=== PATIENT | female | born 1970 | race Caucasian/White ===

== ENCOUNTER 2023-06-18 14:19 | Inpatient (IN) | payer MEDICAID, MEDICARE ==
[~2023-06-18] VITALS: Ht 175.3 cm; Wt 49.4 kg
[~2023-06-18 14:19] MED LIST: ASCO250T22 PO; CEFT1VIA14 IV; CHOL100046 PO; CYAN-104 PO; CYCL5TAB PO; DENO60DI SUBCUT; DICL20GE TOP; DOCU100C40 PO; DULA1.5P SQ; DULO60CA65 PO; EMPA10TA PO; FENT1PAT7 TOP; FERR-39 PO; FLUC100T25 PO; GABA300C PO; HYDR0.5S2 IV; LEVO500P12 IV; LEVO50TA8 PO; LIDO700A32 TOP; METF-436 PO; MULT-1085 PO; ONDA4TAB12 PO; OXYC-150 PO; POTA10CA85 PO; PRED15SO71 PO; SIME80TA16 PO; THIA50TA10 PO; [UNRECOGNIZED DRUG - CODE] IV
[2023-06-18] MEDS ORDERED: insulin regular, human 10 units/0.1 ml syringe IV ONE (15:20)
[2023-06-18] MEDS ORDERED: mag hydrox/Alum hydrox/simeth 30ml oral suspension PO PRN (16:30)
[2023-06-18] MEDS ORDERED: magnesium hydroxide 30ml (MOM) UD suspension PO PRN ×2 (16:30→18:05)
[2023-06-18] MEDS ORDERED: morphine 2 MG/ML inj. syringe IV PRN ×2 (16:30)
[2023-06-18] MEDS ORDERED: acetaminophen 325mg tablet PO PRN ×2 (16:30)
[2023-06-18] MEDS: normal saline 1000ml 1,000 ML IV SCH (17:04)
[2023-06-18] MEDS ORDERED: DRON2.5C18 PO (17:28)
[2023-06-18] MEDS ORDERED: POTA20TA34 PO (17:28)
[2023-06-18] MEDS ORDERED: AMIT25TA10 PO (17:28)
[2023-06-18] MEDS ORDERED: MAGN400O6 PO (17:28)
[2023-06-18] MEDS ORDERED: MEGE40TA5 PO (17:28)
[2023-06-18] MEDS ORDERED: HYDR-3686 PO (17:28)
[2023-06-18] MEDS ORDERED: FENT1PAT10 TP (17:28)
[2023-06-18] MEDS ORDERED: PROP20TA6 PO (17:28)
[2023-06-18] MEDS ORDERED: ASPI-1265 PO (17:28)
[2023-06-18] MEDS ORDERED: EMPA25TA PO (17:28)
[2023-06-18] MEDS ORDERED: METF-437 PO (17:28)
[2023-06-18] MEDS ORDERED: simethicone 80mg chew tab PO PRN (18:05)
[2023-06-18] MEDS ORDERED: fentaNYL 50MCG/HOUR patch.TD72 TD SCH (18:05)
[2023-06-18] MEDS ORDERED: [UNRECOGNIZED DRUG - REMARK] MC ONE (18:30)
[2023-06-18 19:29] LABS: ALBUMIN 2.8 G/DL (3.4-5.0); ANION GAP 16 (8-16); BLOOD UREA NITROGEN 78 MG/DL (7-18); BUN/CREATININE RATIO 13.1 (10.0-20.0); CALCIUM 10.2 MG/DL (8.5-10.1); CHLORIDE 85 MMOL/L (99-107); CREATININE 5.95 MG/DL (0.40-0.90); GLUCOSE 65 MG/DL (70-104); POTASSIUM 4.6 MMOL/L (3.5-5.1); SODIUM 121 MMOL/L (135-145); TOTAL CARBON DIOXIDE 20.3 MMOL/L (24-32); eCRCL 9 ML/MIN; eGFR 7 ML/MIN
[2023-06-18] MEDS: docusate sod 100mg capsule PO SCH (20:00)
[2023-06-18] MEDS: heparin, porcine 5000 units/ml vial SQ SCH (20:00)
--- NOTE | 2023-06-18 21:04 | NUR ---
1855 PT REQUESTING DINNER TRAY, DENIES N/V. TRAY PROVIDED AFTER DIET ORDER CONFIRMED
[2023-06-18] MEDS: propranolol 10mg tablet PO SCH (21:40)
[2023-06-18] MEDS: thiamine 100mg tablet PO SCH (21:40)
[2023-06-18] MEDS: dronabinol 2.5mg capsule PO SCH (22:06)
[2023-06-18] MEDS: amitriptyline 25mg tablet PO SCH (22:07)
[2023-06-18] MEDS: fentaNYL 50MCG/HOUR patch.TD72 TD SCH (22:10)
--- NOTE | 2023-06-18 22:11 | NUR ---
2150 FENTANYL PATCH TO RIGHT CW REMOVED AND DISPOSED OF PROPERLY, WITH 2 RN SIGNATURES, FENTANYL CADD AKNOWLEDGED, NON-ADMIN R/T PT HAS NO PUMP IN PLACE 2210 NEW FENTANYL PATCH PLACED LEFT CHEST WALL
--- NOTE | 2023-06-18 22:23 | NUR ---
2225 STAYED WITH PT TO REPOSITION FOR COMFORT, TURNED TO RIGHT SIDE, WARM BLANKETS, PILLOW POSITIONED, LIGHTS DIMMED, RESTING NOW IN NAD
--- NOTE | 2023-06-19 01:42 | NUR ---
PT TRANSFERRED TO HOSP BED FOR COMFORT, PEND ROOM ASSIGNMENT, RETURNED TO ALL MONITORS, NS INFUSING, RESTING IN NAD. NO C/C AT THIS TIME
--- NOTE | 2023-06-19 06:53 | NUR ---
Patient in room ED 1. I have received report from ER nurse Stacy JOSÉ and had the opportunity to ask questions and assume patient care.
--- NOTE | 2023-06-19 07:10 | NUR ---
Patient arrived to unit via hospital bed. Colostomy leaked all over bedding. Bedding changed. Complaining of minor pain in low back.
[2023-06-19 07:15] VITALS: BP 114/29; PULSE 86; RESP 16; TEMP 98.4; O2SAT 97
[2023-06-19] MEDS: docusate sod 100mg capsule PO SCH ×2 (08:00→19:49)
[2023-06-19] MEDS ORDERED: EMPAGLIFLOZIN 25 MG TABLET PO SCH (08:00)
[2023-06-19] MEDS: normal saline 1000ml 1,000 ML IV SCH ×3 (08:12→22:30)
[2023-06-19] MEDS: heparin, porcine 5000 units/ml vial SQ SCH ×2 (08:13→19:47)
[2023-06-19] MEDS: propranolol 10mg tablet PO SCH ×3 (08:14→19:47)
[2023-06-19] MEDS: levoTHYROXINE 25mcg tablet PO SCH (08:14)
[2023-06-19] MEDS: thiamine 100mg tablet PO SCH ×3 (08:14→19:46)
[2023-06-19] MEDS: ferrous sulfate 325mg tablet PO SCH (08:14)
[2023-06-19] MEDS: multivitamins, therapeutics tablet PO SCH (08:14)
[2023-06-19] MEDS: cyanocobalamin 500mcg tablet PO SCH (08:14)
[2023-06-19 08:52] LABS: BASOPHILS % (AUTO) 0.4 % (0-1); EOSINOPHILS # (AUTO) 0.2 X10'3 (0-0.9); EOSINOPHILS % (AUTO) 3.6 % (0-6); HEMATOCRIT 29.7 % (35.0-45.0); HEMOGLOBIN 10.2 g/dl (12.0-16.0); LYMPHOCYTES # (AUTO) 2.2 X10'3 (1.1-4.8); LYMPHOCYTES % (AUTO) 33.9 % (21-51); MEAN CORPUSCULAR HEMOGLOBIN 27.9 PG (27.0-31.0); MEAN CORPUSCULAR HGB CONC 34.2 g/dL (33.0-36.5); MEAN CORPUSCULAR VOLUME 81.4 FL (78-98); MEAN PLATELET VOLUME 8.1 FL (7.4-10.4); MONOCYTES # (AUTO) 0.7 X10'3 (0-0.9); MONOCYTES % (AUTO) 10.4 % (2-12); NEUTROPHILS # (AUTO) 3.4 X10'3 (1.8-7.7); NEUTROPHILS % (AUTO) 51.7 % (42-75); PLATELET COUNT 163 X10'3 (140-440); RED BLOOD COUNT 3.64 X10'6 (4.20-5.60); RED CELL DISTRIBUTION WIDTH 15.6 % (11.5-14.5); WHITE BLOOD COUNT 6.6 X10'3 (4.5-11.0)
[2023-06-19 09:14] LABS: ALBUMIN 2.6 G/DL (3.4-5.0); ANION GAP 13 (8-16); BLOOD UREA NITROGEN 84 MG/DL (7-18); BUN/CREATININE RATIO 12.4 (10.0-20.0); CALCIUM 9.8 MG/DL (8.5-10.1); CHLORIDE 88 MMOL/L (99-107); CREATININE 6.77 MG/DL (0.40-0.90); GLUCOSE 85 MG/DL (70-104); POTASSIUM 4.3 MMOL/L (3.5-5.1); SODIUM 122 MMOL/L (135-145); TOTAL CARBON DIOXIDE 21.4 MMOL/L (24-32); eCRCL 8 ML/MIN; eGFR 6 ML/MIN
[2023-06-19] MEDS: ascorbic acid 500mg tablet PO SCH (09:30)
[2023-06-19] MEDS: HYDROcodone/acetaminophen 5mg/325mg tablet PO PRN (09:36)
[2023-06-19] MEDS: Potassium Cl inj 20 MEQ in normal saline 1000ml 990 ML IV SCH ×2 (09:39→17:57)
[2023-06-19] MEDS: dronabinol 2.5mg capsule PO SCH ×2 (09:51→20:38)
[2023-06-19] MEDS: megestrol acetate 20mg tablet PO SCH (09:52)
[2023-06-19 11:00] VITALS: BP 98/36; PULSE 71; RESP 19; TEMP 98.6; O2SAT 95
--- NOTE | 2023-06-19 11:27 | NUR ---
Low BMI Screen: Pt admit DX acute renal failure secondary to dehydration, hyponatremia, hypothyroidism, and hx colon CA w/ hemicolectomy and Ileostomy 03/17/23 per EMR. Pt BMI 16.3 using 50kg bed scaled wt this admit; true height 68" making true BMI 16.8. Pt hx 125 pounds 03/15/[address] and reported 60 pounds (~32% UBW) the past year w/ chronic diarrhea met severe malnutrition criteria and was provided w/ RD contact information and Ensure ONS coupons. Pt now 113 pounds further 12 pounds loss on top of already severely malnourished state ~39% UBW loss 15 months; MD notified of severe malnutrition status. Pt seen by RD at bedside; pt reports still has Ensure coupons but receives Glucerna at or between meals at living facility in attempts to gain weight. RD verbally educated pt on nutrition repletion and appropriate ONS supplementation for weight gain/Ileostomy. Pt unable to confirm if changes in Ileostomy output prior to admit; is agreeable to Ensure Enlive TIDWM- MD notified. Fortunately, pt receiving routine MVI, thiamine, vitamin C, and Fe. PO pending on initial renal diet though pt receiving IV NS, IV KCL/NS, and low Na this LOS. RD paged MD regarding change to regular/low-residue diet given malnutrition and electrolyte/Ileostomy status- new regular/low-residue diet now in EMR. Ileostomy -125ml last night pending output documentation this admit. Will monitor for PO tolerance/acceptance and further nutrition intervention needs this admit. Rec: 1. continue low-residue diet; further diet restrictions not appropriate given worsening malnutrition status 2. Ensure Enlive TIDWM; pending physician verification in EMR 3. routine MVI, Fe, vitamin C, thiamine per MD for nutrition repletion 4. routine appetite stimulant per MD 5. cancel cathartics given Ileostomy status if MD agreeable 6. monitor Ileostomy output 7. daily scaled wt Addendum: 06/19/23 at [address] Amended: Links added.
[2023-06-19] MEDS: duloxetine 30mg CAPSULE.DR PO SCH (12:50)
[2023-06-19] MEDS: lactose-reduced food (Ensure Enlive) - 237ml bottle PO SCH (13:00)
[2023-06-19] MEDS ORDERED: diatrozoate meglu/diatrozoate sod (37% iodine) 120ML oral solution PO ONE (14:15)
[2023-06-19 15:00] VITALS: BP 106/30; PULSE 79; RESP 17; TEMP 98.1; O2SAT 95
--- NOTE | 2023-06-19 16:27 | NUR ---
PRESSURE ULCER EDUCATION: DEFINITION: A pressure ulcer is an area of skin that breaks down when you stay in one position too long. The constant pressure against the skin reduces the blood flow to that area and the affected tissue dies. CAUSES: "Being bedridden or in a wheelchair "Fragile skin "Having a chronic condition, such as diabetes or vascular disease "Inability to move certain parts of your body without assistance "Older age "Incontinence of urine or stool SYMPTOMS: "A reddened area that DOES NOT turn white when pressed on - this can be the beginning of a pressure ulcer "A blister, deep sore or a crater - these can be advanced pressure ulcers FIRST AID: "Relieve the pressure on this area "Keep the area clean and dry "Call your primary doctor if you see any of the above symptoms "DO NOT massage the area "DO NOT use a donut shaped or ring shaped pillow- these actually interfere with the blood flow and cause complications PREVENTION: "Check for pressure ulcers everyday "Change position at least every two hours to relieve pressure "Use items that help relieve pressure- pillows, sheepskin, foam padding, and powders. "Keep skin clean and dry "Eat healthy well balanced meals "Exercise daily IF YOU SEE ANY OF THESE SYMPTOMS WHILE IN THE HOSPITAL - TELL YOUR NURSE IMMEDIATELY. IF YOU SEE ANY OF THESE SYMPTOMS WHILE AT HOME OR HAVE ANY QUESTIONS OR CONCERNS ABOUT PRESSURE ULCERS - CALL YOUR PRIMARY DOCTOR IMMEDIATELY. Addendum: 06/19/23 at 1628 by Emili Esparza LVN Amended: Links added.
[2023-06-19 18:00] VITALS: BP 110/42; PULSE 78; RESP 21; TEMP 97.9; O2SAT 94
--- NOTE | 2023-06-19 18:18 | NUR ---
Problems reprioritized. Patient report given, questions answered & plan of care reviewed with Edson JOHNSON.
[2023-06-19] MEDS: amitriptyline 25mg tablet PO SCH (19:46)
[2023-06-19 20:00] VITALS: RESP 21; O2SAT 94
--- NOTE | 2023-06-19 22:20 | NUR ---
pt was given dose of gastrografin 30ml, ct and charge aware
[2023-06-20] VITALS (8 sets, daily range): BP systolic 98–122; BP diastolic 32–54; PULSE 72–80; RESP 15–18; TEMP 97–98.6; O2SAT 92–98
[2023-06-20] MEDS: Potassium Cl inj 20 MEQ in normal saline 1000ml 990 ML IV SCH ×4 (00:50→16:50)
--- NOTE | 2023-06-20 06:30 | NUR ---
Patient in room PCU 3014. I have received report from Edson JOHNSON and had the opportunity to ask questions and assume patient care.
[2023-06-20 07:23] LABS: BASOPHILS % (AUTO) 0.4 % (0-1); EOSINOPHILS # (AUTO) 0.1 X10'3 (0-0.9); EOSINOPHILS % (AUTO) 2.4 % (0-6); HEMATOCRIT 29.7 % (35.0-45.0); LYMPHOCYTES # (AUTO) 1.5 X10'3 (1.1-4.8); LYMPHOCYTES % (AUTO) 34.2 % (21-51); MEAN CORPUSCULAR HEMOGLOBIN 27.4 PG (27.0-31.0); MEAN CORPUSCULAR HGB CONC 33.5 g/dL (33.0-36.5); MEAN CORPUSCULAR VOLUME 81.7 FL (78-98); MEAN PLATELET VOLUME 7.8 FL (7.4-10.4); MONOCYTES # (AUTO) 0.5 X10'3 (0-0.9); MONOCYTES % (AUTO) 11.3 % (2-12); NEUTROPHILS # (AUTO) 2.2 X10'3 (1.8-7.7); NEUTROPHILS % (AUTO) 51.7 % (42-75); PLATELET COUNT 150 X10'3 (140-440); RED BLOOD COUNT 3.64 X10'6 (4.20-5.60); RED CELL DISTRIBUTION WIDTH 15.4 % (11.5-14.5); WHITE BLOOD COUNT 4.3 X10'3 (4.5-11.0)
[2023-06-20 07:36] LABS: ALBUMIN 2.4 G/DL (3.4-5.0); ANION GAP 12 (8-16); BLOOD UREA NITROGEN 78 MG/DL (7-18); BUN/CREATININE RATIO 11.9 (10.0-20.0); CALCIUM 9.3 MG/DL (8.5-10.1); CHLORIDE 96 MMOL/L (99-107); CREATININE 6.53 MG/DL (0.40-0.90); GLUCOSE 121 MG/DL (70-104); POTASSIUM 4.8 MMOL/L (3.5-5.1); SODIUM 128 MMOL/L (135-145); TOTAL CARBON DIOXIDE 20.2 MMOL/L (24-32); eCRCL 8 ML/MIN; eGFR 7 ML/MIN
[2023-06-20] MEDS: docusate sod 100mg capsule PO SCH ×2 (08:00→20:37)
--- NOTE | 2023-06-20 08:28 | NUR ---
Spoke with Dr Awan about patient not voiding and Fluid orders. Dr Awan gave orders to place and [place] cath, and DC NS running @ 100 mL/hr.
[2023-06-20] MEDS: ascorbic acid 500mg tablet PO SCH (09:22)
[2023-06-20] MEDS: HYDROcodone/acetaminophen 5mg/325mg tablet PO PRN ×2 (09:22→16:59)
[2023-06-20] MEDS: multivitamins, therapeutics tablet PO SCH (09:22)
[2023-06-20] MEDS: cyanocobalamin 500mcg tablet PO SCH (09:23)
[2023-06-20] MEDS: megestrol acetate 20mg tablet PO SCH (09:23)
[2023-06-20] MEDS: levoTHYROXINE 25mcg tablet PO SCH (09:23)
[2023-06-20] MEDS: thiamine 100mg tablet PO SCH ×3 (09:23→20:38)
[2023-06-20] MEDS: ferrous sulfate 325mg tablet PO SCH (09:23)
[2023-06-20] MEDS: propranolol 10mg tablet PO SCH ×3 (09:23→20:37)
[2023-06-20] MEDS: duloxetine 30mg CAPSULE.DR PO SCH (09:23)
[2023-06-20] MEDS: heparin, porcine 5000 units/ml vial SQ SCH ×2 (09:24→20:37)
--- NOTE | 2023-06-20 11:35 | NUR ---
Patient's sister called and is asking about patient's diagnosis and prognosis. Asked patient if we can give sister health information. Patient gave permission. Spoke with patient's sister about patient's care and health problems. Sister is reassured with information. Patient is confused on what is going and believes she is dieing. Nursing is doing our best to reassure patient that we are giving her fluids to help her kidneys.
[2023-06-20] MEDS: dronabinol 2.5mg capsule PO SCH (11:43)
[2023-06-20 12:12] LABS: BILIRUBIN,URINE NEGATIVE (Neg); CLARITY,URINE CLOUDY (Clear); COLOR,URINE YELLOW (Yellow); GLUCOSE, URINE 100 mg/dl (Neg); KETONES,URINE NEGATIVE (Neg); LEUKOCYTE ESTERASE ,URINE SMALL (Neg); NITRITES, URINE NEGATIVE (Neg); OCCULT BLOOD,URINE MODERATE (Neg); PH,URINE 5.5 (4.8-8.0); PROTEIN,URINE 100 mg/dl (Neg); UROBILINOGEN,URINE 0.2 E.U/dL (0.2-1.0)
[2023-06-20 12:18] LABS: SQUAMOUS EPITHELIAL CELL,UR MODERATE /LPF (FEW); UA COLLECTION TYPE FOLEY CATH
[2023-06-20 12:20] LABS: BACTERIA,URINE FEW /HPF (Neg); WBC,URINE TNTC /HPF (0-4); YEAST MANY /HPF (NEGATIVE)
[2023-06-20 12:21] LABS: TRANSITIONAL EPI CELLS,URINE FEW /HPF
[2023-06-20 12:24] LABS: TOTAL PROTEIN,URINE RANDOM 115.5 MG/DL
--- NOTE | 2023-06-20 18:17 | NUR ---
Problems reprioritized. Patient report given, questions answered & plan of care reviewed with Landen JOHNSON.
[2023-06-20] MEDS: amitriptyline 25mg tablet PO SCH (20:38)
[2023-06-20] MEDS: potassium Cl 20mEq in NS 1,000 ML IV SCH (21:55)
[2023-06-21] VITALS (8 sets, daily range): BP systolic 108–119; BP diastolic 38–49; PULSE 74–81; RESP 14–18; TEMP 97.3–98.3; O2SAT 93–98
--- NOTE | 2023-06-21 04:10 | NUR ---
CLIENT ACCOUNT REPRESENTATIVE documentation: I have reviewed and agree with all interventions, assessments performed and documented by FRANCES JOHNSON.
[2023-06-21] MEDS: potassium Cl 20mEq in NS 1,000 ML IV SCH ×3 (05:40→22:59)
[2023-06-21] MEDS: dronabinol 2.5mg capsule PO SCH ×2 (08:00→21:38)
[2023-06-21] MEDS: ferrous sulfate 325mg tablet PO SCH (08:04)
[2023-06-21] MEDS: duloxetine 30mg CAPSULE.DR PO SCH (08:04)
[2023-06-21] MEDS: docusate sod 100mg capsule PO SCH ×2 (08:04→20:00)
[2023-06-21] MEDS: multivitamins, therapeutics tablet PO SCH (08:04)
[2023-06-21] MEDS: cyanocobalamin 500mcg tablet PO SCH (08:05)
[2023-06-21] MEDS: thiamine 100mg tablet PO SCH ×3 (08:05→20:49)
[2023-06-21] MEDS: propranolol 10mg tablet PO SCH ×3 (08:05→20:49)
[2023-06-21] MEDS: levoTHYROXINE 25mcg tablet PO SCH (08:05)
[2023-06-21] MEDS: ascorbic acid 500mg tablet PO SCH (08:05)
[2023-06-21] MEDS: heparin, porcine 5000 units/ml vial SQ SCH ×2 (08:06→20:50)
[2023-06-21] MEDS: megestrol acetate 20mg tablet PO SCH (08:28)
[2023-06-21 09:17] LABS: BASOPHILS % (AUTO) 0.7 % (0-1); EOSINOPHILS # (AUTO) 0.1 X10'3 (0-0.9); EOSINOPHILS % (AUTO) 2.4 % (0-6); HEMATOCRIT 28.7 % (35.0-45.0); HEMOGLOBIN 9.7 g/dl (12.0-16.0); LYMPHOCYTES # (AUTO) 1.5 X10'3 (1.1-4.8); LYMPHOCYTES % (AUTO) 33.4 % (21-51); MEAN CORPUSCULAR HEMOGLOBIN 27.7 PG (27.0-31.0); MEAN CORPUSCULAR HGB CONC 33.7 g/dL (33.0-36.5); MEAN CORPUSCULAR VOLUME 82.1 FL (78-98); MEAN PLATELET VOLUME 8.1 FL (7.4-10.4); MONOCYTES # (AUTO) 0.4 X10'3 (0-0.9); MONOCYTES % (AUTO) 9.2 % (2-12); NEUTROPHILS # (AUTO) 2.5 X10'3 (1.8-7.7); NEUTROPHILS % (AUTO) 54.3 % (42-75); PLATELET COUNT 154 X10'3 (140-440); RED CELL DISTRIBUTION WIDTH 16.1 % (11.5-14.5); WHITE BLOOD COUNT 4.6 X10'3 (4.5-11.0)
[2023-06-21 09:42] LABS: ALBUMIN 2.2 G/DL (3.4-5.0); ANION GAP 11 (8-16); BLOOD UREA NITROGEN 69 MG/DL (7-18); BUN/CREATININE RATIO 11.7 (10.0-20.0); CHLORIDE 103 MMOL/L (99-107); GLUCOSE 99 MG/DL (70-104); POTASSIUM 4.8 MMOL/L (3.5-5.1); SODIUM 133 MMOL/L (135-145); THYROID STIMULATING HORMONE 0.58 ulU/ml (0.34-4.50); TOTAL CARBON DIOXIDE 18.6 MMOL/L (24-32); eCRCL 9 ML/MIN; eGFR 7 ML/MIN
[2023-06-21] MEDS: hydrOXYzine 25 MG tablet PO PRN (11:21)
[2023-06-21] MEDS: HYDROcodone/acetaminophen 5mg/325mg tablet PO PRN ×2 (11:22→21:15)
[2023-06-21] MEDS: lactose-reduced food (Ensure Enlive) - 237ml bottle PO SCH (13:00)
[2023-06-21] MEDS: amitriptyline 25mg tablet PO SCH (20:49)
[2023-06-21] MEDS: fentaNYL 50MCG/HOUR patch.TD72 TD SCH (21:39)
[2023-06-22] VITALS (7 sets, daily range): BP systolic 111–138; BP diastolic 33–56; PULSE 73–76; RESP 12–18; TEMP 97.2–98.5; O2SAT 95–96
[2023-06-22] MEDS: potassium Cl 20mEq in NS 1,000 ML IV SCH ×2 (04:30→12:44)
[2023-06-22] MEDS: levoTHYROXINE 25mcg tablet PO SCH (07:00)
[2023-06-22] MEDS: docusate sod 100mg capsule PO SCH ×2 (08:00→20:08)
[2023-06-22] MEDS: propranolol 10mg tablet PO SCH ×3 (08:00→20:08)
[2023-06-22] MEDS: heparin, porcine 5000 units/ml vial SQ SCH ×2 (08:00→20:10)
[2023-06-22 08:47] LABS: BASOPHILS % (AUTO) 0.7 % (0-1); EOSINOPHILS # (AUTO) 0.2 X10'3 (0-0.9); EOSINOPHILS % (AUTO) 3.4 % (0-6); HEMATOCRIT 29.7 % (35.0-45.0); HEMOGLOBIN 9.8 g/dl (12.0-16.0); LYMPHOCYTES # (AUTO) 1.8 X10'3 (1.1-4.8); LYMPHOCYTES % (AUTO) 35.6 % (21-51); MEAN CORPUSCULAR HEMOGLOBIN 27.6 PG (27.0-31.0); MEAN CORPUSCULAR HGB CONC 33.1 g/dL (33.0-36.5); MEAN CORPUSCULAR VOLUME 83.2 FL (78-98); MEAN PLATELET VOLUME 7.3 FL (7.4-10.4); MONOCYTES # (AUTO) 0.4 X10'3 (0-0.9); MONOCYTES % (AUTO) 8.7 % (2-12); NEUTROPHILS # (AUTO) 2.7 X10'3 (1.8-7.7); NEUTROPHILS % (AUTO) 51.6 % (42-75); PLATELET COUNT 176 X10'3 (140-440); RED BLOOD COUNT 3.57 X10'6 (4.20-5.60); RED CELL DISTRIBUTION WIDTH 16.5 % (11.5-14.5); WHITE BLOOD COUNT 5.2 X10'3 (4.5-11.0)
[2023-06-22 09:01] LABS: ALBUMIN 2.2 G/DL (3.4-5.0); ANION GAP 10 (8-16); BLOOD UREA NITROGEN 54 MG/DL (7-18); BUN/CREATININE RATIO 11.8 (10.0-20.0); CALCIUM 9.1 MG/DL (8.5-10.1); CHLORIDE 108 MMOL/L (99-107); CREATININE 4.56 MG/DL (0.40-0.90); GLUCOSE 117 MG/DL (70-104); POTASSIUM 5.1 MMOL/L (3.5-5.1); SODIUM 136 MMOL/L (135-145); TOTAL CARBON DIOXIDE 17.6 MMOL/L (24-32); eCRCL 11 ML/MIN; eGFR 10 ML/MIN
[2023-06-22] MEDS: megestrol acetate 20mg tablet PO SCH (09:23)
[2023-06-22] MEDS: cyanocobalamin 500mcg tablet PO SCH (09:23)
[2023-06-22] MEDS: duloxetine 30mg CAPSULE.DR PO SCH (09:24)
[2023-06-22] MEDS: ferrous sulfate 325mg tablet PO SCH (09:24)
[2023-06-22] MEDS: ascorbic acid 500mg tablet PO SCH (09:24)
[2023-06-22] MEDS: hydrOXYzine 25 MG tablet PO PRN ×2 (09:57→17:37)
[2023-06-22] MEDS: thiamine 100mg tablet PO SCH ×3 (09:57→20:08)
[2023-06-22] MEDS: multivitamins, therapeutics tablet PO SCH (09:57)
[2023-06-22] MEDS: dronabinol 2.5mg capsule PO SCH (12:13)
--- NOTE | 2023-06-22 12:34 | NUR ---
OSTOMY FACTS: Almost everyone has know of, or met, businessmen, entertainers, athletes, and people from all walks of life who have an ostomy. Ostomates (a person that has an ostomy) can ski, ride horses, bowl, and get healthy exercise in countless ways. Your usual activities of daily living can be resumed as soon as you are able. Gradually you will be able to wear the clothes worn before surgery. With modern pouches, nothing is noticeable under your clothing. It may be difficult at first to believe that an intimate relationship can be possible when one's body has been disfigured by surgery. This is not true. Love, fortunately, is not easily destroyed when it is based on genuine appreciation of a person as a thinking, feeling, reacting human being. AN OSTOMY IS NOT AN IMPAIRMENT!! DEFINITIONS: 1.OSTOMY: An opening that is created by a surgical procedure. The opening is called a "stoma". 2.STOMA: A surgical opening in the abdomen (belly) where intestine is brought through the abdominal wall and connected at the skin level. A stoma is shiny, wet and at first is dark purple but eventually turns pink, similar to the inside lining of your mouth. 3.COLON: A portion of the large bowel. 4.COLOSTOMY: A fecal diversion with an opening, (stoma) created anywhere along the colon. Making a connection between the colon and the abdominal wall. 5.ILLEOSTOMY: A fecal diversion with an opening, (stoma) created in the small intestine. Making a connection between the small intestine and the abdominal wall. 6.UROSTOMY: A urinary diversion with the ureters connected to a segment of the small bowel and one end is brought out and connected to the abdominal wall, creating a stoma. SHAPES and SIZES: "The stoma is usually round or oval. "It is anywhere from a dime to half dollar in size. "A stoma reaches its permanent size 6-8 weeks after surgery. PRODUCTS: 1.POUCH or APPLIANCE: An external device to contain stool or urine output and protect the skin around the stoma. It can be a one piece pouch or two pieces (a pouch and a wafer). 2.BARRIER: Substance that is used to protect the skin around the stoma from drainage and adhesive. 3.SKIN PREP or SEALANT: Product applied to the skin to reduce injury from moisture, drainage, or repeated pouch removal. Available in spray or wipes. 4.CLOSURE or CLAMP: A device used to close the bottom of a drainable pouch. 5.BRIDGE or ANDRÉS: A piece of plastic placed under a loop of bowel on the skins surface, to secure the bowel in place while the skin heals. POUCH CHANGE PROCEEDURE: 1.Assemble all the supplies "1 or 2 piece appliance "Ostomy paste (if needed) "Ostomy powder (if needed) "Skin prep wipes ( not recommended with coloplast products) "Moist wash cloth or cotton balls 2.Remove plastic center and paper backing from pouch. If pouch or wafer is not precut, use the sizing guide, or plastic backing from pouch to make a pattern. Do this by placing the paper over the stoma and trace it, or draw a pattern. Cut the wafer to fit and set it aside. 3.Remove old pouch by lifting up on tape while pressing skin down away from the tape. If there is a clip on your pouch, remove it and save it. 4.Clean skin or stoma with moistened wash cloth or cotton balls. Place a clean cotton ball over stoma hole to catch any drainage. Let skin dry. 5.For grooves or uneven areas in the skin- apply ostomy paste and sprinkle with ostomy powder, then gently shape the past so the area around the stoma is smooth and as flat as possible. Wipe off or blow away excess. Blot powder with skin prep wipe (DO NOT wipe powder). Let dry until no longer sticky. 6.For irritated or reddened skin- sprinkle ostomy powder on red or irritated area. Wipe off or blow away excess. Blot powder with skin prep wipe (DO NOT wipe powder). Let dry until no longer sticky. 7.Apply skin prep wipe to skin to which the pouch and tape will adhere. Let dry until no longer sticky. 8.If you have a one piece appliance- apply pouch so it is centered around the stoma. No skin should be exposed to stool. All skin should be covered by paste or pouch. 9.If you have a two piece appliance- Apply the wafer as described above, then snap or stick pouch onto wafer. Check to make sure wafer and pouch are securely connected. 10.Place clip on bottom of pouch. 11.Empty pouch when 1/3 full. OSTOMY SKIN CARE: "Good health care and nutrition are essential for healthy skin. "Usually a correct pouch size will prevent skin breakdown. "Use warm water and soap for skin cleansing. "Do not use creams or oil based products on skin around the stoma. This will prevent the appliance from sticking. "Use skin prep around the stoma. IT CAN TAKE 24 HOURS TO SEVERAL DAYS FOR SKIN TO HEAL. IF IT IS NOT RESOLVING, OR GETTING WORSE, CALL YOUR PRIMARY CARE DOCTOR. Addendum: 06/22/23 at 1236 by Emili Esparza LVN Amended: Links added.
[2023-06-22] MEDS: lactose-reduced food (Ensure Enlive) - 237ml bottle PO SCH ×2 (13:00→20:14)
--- NOTE | 2023-06-22 13:31 | NUR ---
Reassessment: Pt continues on low fiber diet with average 50% PO intake of meals since 03/20 meeting 61% estimated energy needs and 59% estimated protein needs. Physician has approved ONS in EMR, pt to begin Ensure Enlive TID. LBM 06/22 per EMR though no documentation of quantity of stool output. Per I&O pt with 1250 mL stool output 06/21. Will continue to follow closely and monitor need for further nutrition intervention pending ONS acceptance. Recommendations: 1. Continue low fiber diet; further diet restrictions not appropriate given worsening malnutrition status 2. Ensure Enlive TIDWM 3. Routine MVI, Fe, vitamin C, Thiamine per MD for nutrition repletion 4. Routine appetite stimulant per MD 5. Cancel cathartics given Ileostomy status if MD agreeable 6. Daily scaled wt Addendum: 06/22/23 at [address] Amended: Links added.
[2023-06-22] MEDS: normal saline 1000ml 1,000 ML IV SCH (16:41)
[2023-06-22] MEDS: HYDROcodone/acetaminophen 5mg/325mg tablet PO PRN (17:37)
[2023-06-22] MEDS: amitriptyline 25mg tablet PO SCH (20:08)
[2023-06-22] MEDS: oxyCODONE/APAP 10/325mg tablet PO PRN (20:09)
[2023-06-23] VITALS (8 sets, daily range): BP systolic 112–143; BP diastolic 35–44; PULSE 68–86; RESP 14–20; TEMP 97.4–98.2; O2SAT 95–98
[2023-06-23] MEDS: normal saline 1000ml 1,000 ML IV SCH ×4 (00:10→19:23)
[2023-06-23] MEDS: dronabinol 2.5mg capsule PO SCH ×3 (00:26→20:00)
[2023-06-23] MEDS: HYDROcodone/acetaminophen 10/325mg tab PO PRN ×2 (00:26→22:38)
--- NOTE | 2023-06-23 03:30 | NUR ---
I AGREE WITH THE ASSESSMENT OF MACHINE TOOL TECHNOLOGY INSTRUCTOR.
[2023-06-23 07:32] LABS: BASOPHILS % (AUTO) 0.5 % (0-1); EOSINOPHILS # (AUTO) 0.2 X10'3 (0-0.9); EOSINOPHILS % (AUTO) 4.5 % (0-6); HEMATOCRIT 31.8 % (35.0-45.0); HEMOGLOBIN 10.3 g/dl (12.0-16.0); LYMPHOCYTES # (AUTO) 2.1 X10'3 (1.1-4.8); LYMPHOCYTES % (AUTO) 37.3 % (21-51); MEAN CORPUSCULAR HEMOGLOBIN 27.3 PG (27.0-31.0); MEAN CORPUSCULAR HGB CONC 32.5 g/dL (33.0-36.5); MEAN CORPUSCULAR VOLUME 83.9 FL (78-98); MEAN PLATELET VOLUME 7.6 FL (7.4-10.4); MONOCYTES # (AUTO) 0.5 X10'3 (0-0.9); MONOCYTES % (AUTO) 8.9 % (2-12); NEUTROPHILS # (AUTO) 2.7 X10'3 (1.8-7.7); NEUTROPHILS % (AUTO) 48.8 % (42-75); PLATELET COUNT 187 X10'3 (140-440); RED BLOOD COUNT 3.79 X10'6 (4.20-5.60); RED CELL DISTRIBUTION WIDTH 16.5 % (11.5-14.5); WHITE BLOOD COUNT 5.5 X10'3 (4.5-11.0)
[2023-06-23 07:36] LABS: ALBUMIN 2.2 G/DL (3.4-5.0); ANION GAP 8 (8-16); BLOOD UREA NITROGEN 49 MG/DL (7-18); BUN/CREATININE RATIO 13.6 (10.0-20.0); CALCIUM 9.6 MG/DL (8.5-10.1); CHLORIDE 109 MMOL/L (99-107); CREATININE 3.59 MG/DL (0.40-0.90); GLUCOSE 122 MG/DL (70-104); SODIUM 136 MMOL/L (135-145); TOTAL CARBON DIOXIDE 19.5 MMOL/L (24-32); eCRCL 14 ML/MIN; eGFR 13 ML/MIN
[2023-06-23] MEDS: lactose-reduced food (Ensure Enlive) - 237ml bottle PO SCH ×3 (08:00→18:00)
[2023-06-23] MEDS: multivitamins, therapeutics tablet PO SCH (09:10)
[2023-06-23] MEDS: docusate sod 100mg capsule PO SCH ×2 (09:10→20:00)
[2023-06-23] MEDS: cyanocobalamin 500mcg tablet PO SCH (09:10)
[2023-06-23] MEDS: ferrous sulfate 325mg tablet PO SCH (09:10)
[2023-06-23] MEDS: heparin, porcine 5000 units/ml vial SQ SCH ×2 (09:10→19:19)
[2023-06-23] MEDS: propranolol 10mg tablet PO SCH ×3 (09:11→22:37)
[2023-06-23] MEDS: duloxetine 30mg CAPSULE.DR PO SCH (09:11)
[2023-06-23] MEDS: thiamine 100mg tablet PO SCH ×3 (09:11→22:37)
[2023-06-23] MEDS: ascorbic acid 500mg tablet PO SCH (09:12)
[2023-06-23] MEDS: megestrol acetate 20mg tablet PO SCH (09:14)
[2023-06-23] MEDS: levoTHYROXINE 25mcg tablet PO SCH (09:14)
[2023-06-23] MEDS: hydrOXYzine 25 MG tablet PO PRN (09:14)
[2023-06-23] MEDS: HYDROcodone/acetaminophen 5mg/325mg tablet PO PRN ×2 (09:25→13:35)
[2023-06-23] MEDS: oxyCODONE/APAP 10/325mg tablet PO PRN (19:20)
[2023-06-23] MEDS: amitriptyline 25mg tablet PO SCH (22:37)
[2023-06-24] VITALS (7 sets, daily range): BP systolic 113–155; BP diastolic 27–90; PULSE 75–101; RESP 14–18; TEMP 97.7–98.5; O2SAT 94–99
[2023-06-24] MEDS: normal saline 1000ml 1,000 ML IV SCH ×3 (03:30→19:41)
--- NOTE | 2023-06-24 05:00 | NUR ---
Student documentation: I have reviewed and agree with assessment performed and documented by SEVERINO Hernandez
--- NOTE | 2023-06-24 06:30 | NUR ---
Patient in room PCU 3011. I have received report from Zahira JOHNSON and had the opportunity to ask questions and assume patient care.
[2023-06-24] MEDS: docusate sod 100mg capsule PO SCH (08:00)
[2023-06-24] MEDS: HYDROcodone/acetaminophen 10/325mg tab PO PRN ×2 (08:15→19:40)
[2023-06-24] MEDS: duloxetine 30mg CAPSULE.DR PO SCH (08:16)
[2023-06-24] MEDS: multivitamins, therapeutics tablet PO SCH (08:16)
[2023-06-24] MEDS: thiamine 100mg tablet PO SCH ×3 (08:16→21:42)
[2023-06-24] MEDS: propranolol 10mg tablet PO SCH ×3 (08:16→21:41)
[2023-06-24] MEDS: cyanocobalamin 500mcg tablet PO SCH (08:16)
[2023-06-24] MEDS: megestrol acetate 20mg tablet PO SCH (08:16)
[2023-06-24] MEDS: ferrous sulfate 325mg tablet PO SCH (08:16)
[2023-06-24] MEDS: levoTHYROXINE 25mcg tablet PO SCH (08:16)
[2023-06-24] MEDS: heparin, porcine 5000 units/ml vial SQ SCH ×2 (08:17→19:42)
[2023-06-24] MEDS: lactose-reduced food (Ensure Enlive) - 237ml bottle PO SCH ×3 (08:17→20:00)
[2023-06-24] MEDS: ascorbic acid 500mg tablet PO SCH (08:59)
[2023-06-24] MEDS: dronabinol 2.5mg capsule PO SCH (08:59)
[2023-06-24 11:17] LABS: BASOPHILS % (AUTO) 0.7 % (0-1); EOSINOPHILS # (AUTO) 0.2 X10'3 (0-0.9); EOSINOPHILS % (AUTO) 3.3 % (0-6); HEMATOCRIT 31.6 % (35.0-45.0); HEMOGLOBIN 10.2 g/dl (12.0-16.0); LYMPHOCYTES # (AUTO) 1.4 X10'3 (1.1-4.8); MEAN CORPUSCULAR HEMOGLOBIN 27.2 PG (27.0-31.0); MEAN CORPUSCULAR HGB CONC 32.3 g/dL (33.0-36.5); MEAN CORPUSCULAR VOLUME 84.3 FL (78-98); MEAN PLATELET VOLUME 6.9 FL (7.4-10.4); MONOCYTES # (AUTO) 0.3 X10'3 (0-0.9); MONOCYTES % (AUTO) 5.9 % (2-12); NEUTROPHILS # (AUTO) 3.3 X10'3 (1.8-7.7); NEUTROPHILS % (AUTO) 63.1 % (42-75); PLATELET COUNT 168 X10'3 (140-440); RED BLOOD COUNT 3.75 X10'6 (4.20-5.60); RED CELL DISTRIBUTION WIDTH 16.5 % (11.5-14.5); WHITE BLOOD COUNT 5.2 X10'3 (4.5-11.0)
[2023-06-24] MEDS: oxyCODONE/APAP 10/325mg tablet PO PRN (11:17)
[2023-06-24 11:35] LABS: ALANINE AMINOTRANSFERASE 10 U/L (12-78); ALBUMIN 2.2 G/DL (3.4-5.0); ALBUMIN/GLOBULIN RATIO 0.6 (1.1-1.5); ALKALINE PHOSPHATASE 86 IU/L (46-116); ANION GAP 10 (8-16); ASPARTATE AMINO TRANSFERASE 18 U/L (10-37); BILIRUBIN,TOTAL 0.3 MG/DL (0.1-1.0); BLOOD UREA NITROGEN 38 MG/DL (7-18); CALCIUM 9.4 MG/DL (8.5-10.1); CHLORIDE 111 MMOL/L (99-107); CREATININE 2.24 MG/DL (0.40-0.90); GLUCOSE 113 MG/DL (70-104); MAGNESIUM 1.4 MG/DL (1.5-2.4); PHOSPHORUS 3.7 MG/DL (2.3-4.5); POTASSIUM 4.4 MMOL/L (3.5-5.1); SODIUM 139 MMOL/L (135-145); TOTAL PROTEIN 5.8 G/DL (6.4-8.2); eCRCL 23 ML/MIN; eGFR 23 ML/MIN
--- NOTE | 2023-06-24 14:08 | NUR ---
VIRTUALIZATION CONSULTANT assessment reviewed and agreed with
--- NOTE | 2023-06-24 18:27 | NUR ---
Problems reprioritized. Patient report given, questions answered & plan of care reviewed with Mary Beth JOSÉ.
[2023-06-24] MEDS: ondansetron/PF 4mg/2ml inj IV PRN (21:42)
[2023-06-24] MEDS: fentaNYL 50MCG/HOUR patch.TD72 TD SCH (21:54)
[2023-06-25] VITALS (7 sets, daily range): BP systolic 98–159; BP diastolic 45–72; PULSE 82–108; RESP 14–20; TEMP 98.2–100.3; O2SAT 91–96
[2023-06-25] MEDS: normal saline 1000ml 1,000 ML IV SCH (03:16)
[2023-06-25] MEDS: ondansetron/PF 4mg/2ml inj IV PRN (03:17)
--- NOTE | 2023-06-25 06:18 | NUR ---
Report was given to Gabi
[2023-06-25 06:21] LABS: BASOPHILS % (AUTO) 0.7 % (0-1); EOSINOPHILS # (AUTO) 0.1 X10'3 (0-0.9); HEMATOCRIT 32.8 % (35.0-45.0); HEMOGLOBIN 10.7 g/dl (12.0-16.0); LYMPHOCYTES # (AUTO) 1.5 X10'3 (1.1-4.8); LYMPHOCYTES % (AUTO) 26.1 % (21-51); MEAN CORPUSCULAR HEMOGLOBIN 27.6 PG (27.0-31.0); MEAN CORPUSCULAR HGB CONC 32.7 g/dL (33.0-36.5); MEAN CORPUSCULAR VOLUME 84.4 FL (78-98); MONOCYTES # (AUTO) 0.2 X10'3 (0-0.9); NEUTROPHILS # (AUTO) 3.9 X10'3 (1.8-7.7); NEUTROPHILS % (AUTO) 68.2 % (42-75); PLATELET COUNT 185 X10'3 (140-440); RED BLOOD COUNT 3.89 X10'6 (4.20-5.60); WHITE BLOOD COUNT 5.7 X10'3 (4.5-11.0)
--- NOTE | 2023-06-25 06:37 | NUR ---
Patient in room PCU 3014. I have received report from Mary Beth JOSÉ and had the opportunity to ask questions and assume patient care.
[2023-06-25 07:04] LABS: ALANINE AMINOTRANSFERASE 13 U/L (12-78); ALBUMIN 2.4 G/DL (3.4-5.0); ALBUMIN/GLOBULIN RATIO 0.6 (1.1-1.5); ALKALINE PHOSPHATASE 94 IU/L (46-116); ANION GAP 14 (8-16); ASPARTATE AMINO TRANSFERASE 15 U/L (10-37); BILIRUBIN,TOTAL 0.4 MG/DL (0.1-1.0); BLOOD UREA NITROGEN 32 MG/DL (7-18); CALCIUM 9.4 MG/DL (8.5-10.1); CHLORIDE 112 MMOL/L (99-107); CREATININE 1.78 MG/DL (0.40-0.90); GLUCOSE 120 MG/DL (70-104); MAGNESIUM 1.3 MG/DL (1.5-2.4); PHOSPHORUS 3.7 MG/DL (2.3-4.5); POTASSIUM 4.4 MMOL/L (3.5-5.1); SODIUM 140 MMOL/L (135-145); TOTAL PROTEIN 6.1 G/DL (6.4-8.2); eCRCL 29 ML/MIN; eGFR 30 ML/MIN
--- NOTE | 2023-06-25 07:24 | NUR ---
PAGER ID: [phone] MESSAGE: [id number] [facility] of 14.0. Thank you Gabi JOHNSON [phone]
--- NOTE | 2023-06-25 07:26 | NUR ---
Dr Jennings called and gave order for ABG now. Requested to call her back with ABG results.
[2023-06-25] MEDS: multivitamins, therapeutics tablet PO SCH (07:56)
[2023-06-25] MEDS: thiamine 100mg tablet PO SCH ×3 (07:57→19:25)
[2023-06-25] MEDS: ferrous sulfate 325mg tablet PO SCH (07:57)
[2023-06-25] MEDS: levoTHYROXINE 25mcg tablet PO SCH (07:57)
[2023-06-25] MEDS: cyanocobalamin 500mcg tablet PO SCH (07:57)
[2023-06-25] MEDS: ascorbic acid 500mg tablet PO SCH (07:57)
[2023-06-25] MEDS: propranolol 10mg tablet PO SCH ×3 (07:57→19:25)
[2023-06-25] MEDS: heparin, porcine 5000 units/ml vial SQ SCH ×2 (07:58→19:25)
[2023-06-25] MEDS: lactose-reduced food (Ensure Enlive) - 237ml bottle PO SCH ×2 (07:58→19:26)
[2023-06-25] MEDS: HYDROcodone/acetaminophen 5mg/325mg tablet PO PRN (07:58)
[2023-06-25 08:59] LABS: ABG BASE EXCESS -10.6 mmol/L (-2.0-2.0); ABG OXYGEN SATURATION 93.8 % (94-97); ABG PCO2 (T) 27.5 mmHg (32.0-45.0); ABG PH (T) 7.321 (7.350-7.450); ABG PO2 (T) 63.3 mmHg (75.0-100.0); ALLEN'S TEST POSITIVE; FCOHb 0.9 % (0.0-3.9); FHHb 6.1 % (0.0-5.0); FMetHb 0.3 % (0.0-1.5); FO2Hb 92.7 % (94-97); PATIENT TEMPERATURE 36.7; TOTAL HEMOGLOBIN 13.6 G/dl (12.0-16.0)
--- NOTE | 2023-06-25 09:14 | NUR ---
Called Dr Jennings was unable to get ahold of her. Will try again later.
--- NOTE | 2023-06-25 10:00 | NUR ---
TRUCK SWITCHER assessment reviewed, agreed with
[2023-06-25] MEDS: sodium bicarbonate (8.4%) inj. 100 MEQ in dextrose 5%-water 1,000 ML IV SCH ×3 (10:23→22:38)
[2023-06-25] MEDS: HYDROcodone/acetaminophen 10/325mg tab PO PRN ×2 (13:06→19:25)
--- NOTE | 2023-06-25 13:35 | NUR ---
Spoke with Dr Gutierrez about patient's Marinol, Megace, and Percocet order being canceled yesterday. gave orders to restart meds.
--- NOTE | 2023-06-25 15:35 | NUR ---
Spoke with patient's mother Daisha. Gave her a update on the patient's care and discharge plan.
[2023-06-25] MEDS ORDERED: magnesium 4gm in 100ml NS 100 ML IV PRN (16:40)
[2023-06-25] MEDS ORDERED: magnesium 2GM in 50ml NS 50 ML IV PRN (16:40)
[2023-06-25] MEDS: oxyCODONE/APAP 10/325mg tablet PO PRN ×2 (17:36→23:20)
[2023-06-25] MEDS: magnesium Cl slow-release 64mg tablet PO PRN (17:36)
--- NOTE | 2023-06-25 18:21 | NUR ---
Problems reprioritized. Patient report given, questions answered & plan of care reviewed with Edson JOHNSON.
[2023-06-25] MEDS: dronabinol 2.5mg capsule PO SCH (20:33)
[2023-06-26] VITALS (7 sets, daily range): BP systolic 131–160; BP diastolic 35–60; PULSE 60–84; RESP 15–19; TEMP 97.4–98.7; O2SAT 90–97
--- NOTE | 2023-06-26 06:21 | NUR ---
Patient in room PCU 3014. I have received report from Edson OJHNSON and had the opportunity to ask questions and assume patient care.
[2023-06-26] MEDS: ondansetron/PF 4mg/2ml inj IV PRN ×2 (07:16→14:58)
[2023-06-26] MEDS: thiamine 100mg tablet PO SCH ×3 (07:56→20:36)
[2023-06-26] MEDS: cyanocobalamin 500mcg tablet PO SCH (07:56)
[2023-06-26] MEDS: multivitamins, therapeutics tablet PO SCH (07:56)
[2023-06-26] MEDS: levoTHYROXINE 25mcg tablet PO SCH (07:56)
[2023-06-26] MEDS: oxyCODONE/APAP 10/325mg tablet PO PRN ×2 (07:57→17:00)
[2023-06-26] MEDS: ascorbic acid 500mg tablet PO SCH (07:57)
[2023-06-26] MEDS: ferrous sulfate 325mg tablet PO SCH (07:57)
[2023-06-26] MEDS: propranolol 10mg tablet PO SCH ×3 (07:57→20:36)
[2023-06-26] MEDS: heparin, porcine 5000 units/ml vial SQ SCH ×2 (07:58→20:38)
[2023-06-26] MEDS: lactose-reduced food (Ensure Enlive) - 237ml bottle PO SCH ×2 (07:58→20:38)
[2023-06-26] MEDS ORDERED: megestrol acetate 20mg tablet PO SCH (08:00)
[2023-06-26 09:18] LABS: BASOPHILS % (AUTO) 0.8 % (0-1); EOSINOPHILS # (AUTO) 0.1 X10'3 (0-0.9); EOSINOPHILS % (AUTO) 1.3 % (0-6); HEMATOCRIT 32.7 % (35.0-45.0); HEMOGLOBIN 10.9 g/dl (12.0-16.0); LYMPHOCYTES # (AUTO) 1.6 X10'3 (1.1-4.8); MEAN CORPUSCULAR HEMOGLOBIN 27.7 PG (27.0-31.0); MEAN CORPUSCULAR HGB CONC 33.3 g/dL (33.0-36.5); MEAN PLATELET VOLUME 7.1 FL (7.4-10.4); MONOCYTES # (AUTO) 0.3 X10'3 (0-0.9); MONOCYTES % (AUTO) 5.2 % (2-12); NEUTROPHILS # (AUTO) 4.2 X10'3 (1.8-7.7); NEUTROPHILS % (AUTO) 66.7 % (42-75); PLATELET COUNT 183 X10'3 (140-440); RED BLOOD COUNT 3.94 X10'6 (4.20-5.60); RED CELL DISTRIBUTION WIDTH 16.9 % (11.5-14.5); WHITE BLOOD COUNT 6.2 X10'3 (4.5-11.0)
[2023-06-26] MEDS: dronabinol 2.5mg capsule PO SCH ×2 (09:37→20:37)
[2023-06-26 10:21] LABS: ALANINE AMINOTRANSFERASE 10 U/L (12-78); ALBUMIN 2.5 G/DL (3.4-5.0); ALBUMIN/GLOBULIN RATIO 0.7 (1.1-1.5); ALKALINE PHOSPHATASE 90 IU/L (46-116); ANION GAP 12 (8-16); ASPARTATE AMINO TRANSFERASE 19 U/L (10-37); BILIRUBIN,TOTAL 0.3 MG/DL (0.1-1.0); BLOOD UREA NITROGEN 29 MG/DL (7-18); BUN/CREATININE RATIO 19.7 (10.0-20.0); CALCIUM 9.2 MG/DL (8.5-10.1); CHLORIDE 106 MMOL/L (99-107); CREATININE 1.47 MG/DL (0.40-0.90); GLUCOSE 144 MG/DL (70-104); MAGNESIUM 1.3 MG/DL (1.5-2.4); POTASSIUM 3.6 MMOL/L (3.5-5.1); SODIUM 139 MMOL/L (135-145); TOTAL CARBON DIOXIDE 21.1 MMOL/L (24-32); TOTAL PROTEIN 6.2 G/DL (6.4-8.2); eCRCL 34 ML/MIN; eGFR 37 ML/MIN
[2023-06-26] MEDS: HYDROcodone/acetaminophen 10/325mg tab PO PRN ×2 (12:28→20:47)
[2023-06-26] MEDS: sodium bicarbonate (8.4%) inj. 100 MEQ in dextrose 5%-water 1,000 ML IV SCH (13:54)
--- NOTE | 2023-06-26 15:11 | NUR ---
Reassessment: PO intake of meals appears to have declined, documented with average 15% PO intake of meals and average 28% PO intake of Ensure Enlive TID since 06/23 d/t refusal of several meals and ONS. Combined average intake of meals and ONS only meets 34% estimated energy needs and 35% estimated protein needs. See additional nutrition interventions below that were d/w dietary. Noted PO intake improved this morning, documented with 100% PO intake of ONS and 50% PO intake of meal. LBM 06/26 with 550 mL stool output so far per I&O. Per CM notes pt likely discharging tomorrow with case picker time around 0800. Will continue to follow closely and make recommendations as appropriate. Recommendations: 1. Continue low fiber diet; further diet restrictions not appropriate given worsening malnutrition status 2. Ensure Enlive TIDWM 3. Shake WS, yogurt WB; monitor need for additional nutrition intervention and/or nutrition support 4. Routine MVI, Fe, vitamin C, Thiamine per MD for nutrition repletion 5. Routine appetite stimulant per MD 6. Daily scaled wt Addendum: 06/26/23 at [address] Amended: Links added.
[2023-06-26] MEDS: magnesium Cl slow-release 64mg tablet PO PRN ×2 (16:59→20:47)
--- NOTE | 2023-06-26 18:32 | NUR ---
AGREE WITH CRACKER SPRAYER AM ASSESSMENT
--- NOTE | 2023-06-27 00:16 | NUR ---
Problems reprioritized. Patient report given, questions answered & plan of care reviewed with Edson JOHNSON.
[2023-06-27] MEDS: HYDROcodone/acetaminophen 10/325mg tab PO PRN ×2 (01:00→05:20)
[2023-06-27 02:00] VITALS: BP 153/58; PULSE 80; RESP 16; TEMP 97.4; O2SAT 90
[2023-06-27] MEDS: ondansetron/PF 4mg/2ml inj IV PRN ×2 (02:24→08:10)
[2023-06-27 06:00] VITALS: BP 146/35; PULSE 79; RESP 15; TEMP 98.6; O2SAT 98
--- NOTE | 2023-06-27 07:31 | NUR ---
Message: Colleen Kaur [id number] According to CM pt. to be p/u in 30 minutes to transfer to [facility]. Please write discharge orders if this is the case. Thank you Cherrie [phone]
[2023-06-27 07:51] LABS: BASOPHILS % (AUTO) 0.7 % (0-1); EOSINOPHILS # (AUTO) 0.1 X10'3 (0-0.9); EOSINOPHILS % (AUTO) 2.1 % (0-6); HEMATOCRIT 31.1 % (35.0-45.0); HEMOGLOBIN 10.5 g/dl (12.0-16.0); LYMPHOCYTES % (AUTO) 28.8 % (21-51); MEAN CORPUSCULAR HEMOGLOBIN 27.8 PG (27.0-31.0); MEAN CORPUSCULAR HGB CONC 33.6 g/dL (33.0-36.5); MEAN CORPUSCULAR VOLUME 82.7 FL (78-98); MEAN PLATELET VOLUME 7.4 FL (7.4-10.4); MONOCYTES # (AUTO) 0.4 X10'3 (0-0.9); MONOCYTES % (AUTO) 6.5 % (2-12); NEUTROPHILS # (AUTO) 4.2 X10'3 (1.8-7.7); NEUTROPHILS % (AUTO) 61.9 % (42-75); PLATELET COUNT 166 X10'3 (140-440); RED BLOOD COUNT 3.76 X10'6 (4.20-5.60); RED CELL DISTRIBUTION WIDTH 16.8 % (11.5-14.5); WHITE BLOOD COUNT 6.8 X10'3 (4.5-11.0)
[2023-06-27] MEDS: ascorbic acid 500mg tablet PO SCH (07:54)
[2023-06-27] MEDS: propranolol 10mg tablet PO SCH (07:54)
[2023-06-27] MEDS: levoTHYROXINE 25mcg tablet PO SCH (07:55)
[2023-06-27] MEDS: multivitamins, therapeutics tablet PO SCH (07:55)
[2023-06-27] MEDS: thiamine 100mg tablet PO SCH (07:55)
[2023-06-27] MEDS: ferrous sulfate 325mg tablet PO SCH (07:55)
[2023-06-27] MEDS: cyanocobalamin 500mcg tablet PO SCH (07:55)
[2023-06-27 07:56] VITALS: RESP 18
[2023-06-27] MEDS: oxyCODONE/APAP 10/325mg tablet PO PRN (07:56)
[2023-06-27] MEDS: heparin, porcine 5000 units/ml vial SQ SCH (07:58)
[2023-06-27 08:00] LABS: ALANINE AMINOTRANSFERASE 9 U/L (12-78); ALBUMIN 2.5 G/DL (3.4-5.0); ALBUMIN/GLOBULIN RATIO 0.8 (1.1-1.5); ALKALINE PHOSPHATASE 81 IU/L (46-116); ANION GAP 8 (8-16); ASPARTATE AMINO TRANSFERASE 16 U/L (10-37); BILIRUBIN,TOTAL 0.3 MG/DL (0.1-1.0); BLOOD UREA NITROGEN 23 MG/DL (7-18); BUN/CREATININE RATIO 18.3 (10.0-20.0); CALCIUM 8.9 MG/DL (8.5-10.1); CHLORIDE 103 MMOL/L (99-107); CREATININE 1.26 MG/DL (0.40-0.90); GLUCOSE 149 MG/DL (70-104); MAGNESIUM 1.3 MG/DL (1.5-2.4); PHOSPHORUS 2.7 MG/DL (2.3-4.5); POTASSIUM 3.2 MMOL/L (3.5-5.1); SODIUM 138 MMOL/L (135-145); TOTAL CARBON DIOXIDE 27.2 MMOL/L (24-32); TOTAL PROTEIN 5.8 G/DL (6.4-8.2); eCRCL 39 ML/MIN; eGFR 44 ML/MIN
[2023-06-27] MEDS ORDERED: MAGN64TA10 PO (08:23)
[2023-06-27] MEDS ORDERED: SODI325T PO (08:23)
--- NOTE | 2023-06-27 08:42 | NUR ---
Message: JULIAN ARGUELLO [id number] CAN YOU CALL ME STAT PLEASE. [phone]
--- NOTE | 2023-06-27 09:06 | NUR ---
DISCHARGE NOTE: Pt. discharged by to [facility]. Transferred by jennifer with two [facility] personnel. RN from [facility] concerned that pt. had been transferred for neurological issues- slurring. Also concerned about UTI, no antibiotics, and electrolyte levels. This was all discussed with hospitalist who wrote new orders on TMS paperwork. Copy made and given to CM. PIV DC'd, canula intact, no s/sx bleeding noted, but pressure bandage applied. Belongings gathered and left with pt. TMS paperwork given for transfer.
== END 2023-06-27 09:03 | DRG 682 ==
LOC: ER 14:19 → ED HOLD 16:32 → PCU 3S 06-19 07:05
PROVIDERS: ADMIT Internal Medicine; ATTEND Internal Medicine
DX: N17.0 Acute kidney failure with tubular necrosis (principal); E43 Unspecified severe protein-calorie malnutrition; B37.49 Other urogenital candidiasis; E87.1 Hypo-osmolality and hyponatremia; E87.20 Acidosis, unspecified; E03.9 Hypothyroidism, unspecified; F32.A Depression, unspecified; I10 Essential (primary) hypertension; E11.9 Type 2 diabetes mellitus without complications; E87.6 Hypokalemia; E83.42 Hypomagnesemia; E86.0 Dehydration; G35 Multiple sclerosis; Z85.038 Personal history of other malignant neoplasm of large intestine; Z87.440 Personal history of urinary (tract) infections; Z87.891 Personal history of nicotine dependence; Z86.73 Personal history of transient ischemic attack (TIA), and cerebral infarction without residual deficits; Z83.3 Family history of diabetes mellitus; Z79.82 Long term (current) use of aspirin; Z79.899 Other long term (current) drug therapy; Z93.3 Colostomy status
CPT/HCPCS: 36415; 36600; 74176; 80048; 80053; 81001; 82570; 82803; 82948; 83605; 83735; 83935; 84100; 84133; 84156; 84300; 84443; 84540; 85018; 85025; 87040; 87077; 87081; 87088; 99285; A4314; A4371; A4421; A4649; A5200; A6213; A6234; A6250; A6449; G0378; J1644; J2405; J3480; J3490; J7030; J7070; Q0167; Q0177; Q9963

== ENCOUNTER → 2023-10-03 | Day surgery (SDC) | payer MEDICARE, MEDICAID ==
[~2023-10-03] MED LIST changes: +AMIT25TA10 PO; +ASPI-1265 PO; -CEFT1VIA14 IV; -CYCL5TAB PO; -DENO60DI SUBCUT; -DICL20GE TOP; -DOCU100C40 PO; +DRON2.5C18 PO; -DULA1.5P SQ; -DULO60CA65 PO; -EMPA10TA PO; +EMPA25TA PO; +FENT1PAT10 TP; -FENT1PAT7 TOP; -FLUC100T25 PO; +HYDR-3686 PO; -HYDR0.5S2 IV; -LEVO500P12 IV; -LIDO700A32 TOP; +MAGN400O6 PO; +MAGN64TA10 PO; +MEGE40TA5 PO; -METF-436 PO; -POTA10CA85 PO; +POTA20TA34 PO; -PRED15SO71 PO; +PROP20TA6 PO; +SODI325T PO; -[UNRECOGNIZED DRUG - CODE] IV
== END | disposition home or self-care (01) ==
LOC: SSTAY O 09:44
PROVIDERS: ATTEND Nurse Practitioner Family
DX: T81.89XD Other complications of procedures, not elsewhere classified, subsequent encounter (principal); Y83.8 Other surgical procedures as the cause of abnormal reaction of the patient, or of later complication, without mention of misadventure at the time of the procedure; Y92.89 Other specified places as the place of occurrence of the external cause
CPT/HCPCS: 36569; 36573; 76942